=== PATIENT | female | born 1975 | race Caucasian/White ===

== ENCOUNTER 2017-04-01 23:32 | Emergency (ER) | payer OTHER ==
[~2017-04-01] VITALS: Ht 152.4 cm; Wt 60.0 kg
--- NOTE | ~2017-04-01 | CR94 ---
[facility] A Service of [facility] & [facility] RADIOLOGY TEXT RESULTS PATIENT: CHADD RUBY LOCATION: SED : [birth year] UNIT #: [id number] AGE: [address]: Elier Fairchild MD SEX: F ORDER DR: [id number] [place] [id number] E MR#: [id number] Acc #: [id number] NAME: CHADD RUBY : 1975 SEX: F STUDY DATE/TIME: 04/02/2017 0:07 UNIT: SED ROOM: STUDY DESCRIPTION: CR Elbow Min 3 Views Rt Attending Physician: Elier Fairchild M.D. Ordering Physician: Elier Fairchild M.D. Primary Care Physician: Primary Care Physician No MEDICAL IMAGING REPORT This report is preliminary unless electronic signature is present. EXAM Right elbow, 04/02/2017 HISTORY 41-year-old female with elbow pain after falling out of bed 1 week ago. TECHNIQUE Three-view right elbow series. FINDINGS Examination is negative. No fracture, dislocation or other osseous abnormality. IMPRESSION Negative right elbow series. Dictated by... Jayce Tracy M.D. THIS IS AN ELECTRONICALLY VERIFIED REPORT Jayce Tracy M.D. at 04/02/2017 6:07 AM Andrea TD: 04/02/2017 02:01 JOB #: [id number] MEDICAL IMAGING REPORT Page 1 of 1
[~2017-04-01 23:32] MED LIST: BENTYL20 MG PO; CLEOCIN PO; NO MEDICATIONS
== END 2017-04-02 01:04 | disposition home or self-care (01) ==
LOC: SED 23:32
DX: S50.01XA Contusion of right elbow, initial encounter (principal); F17.200 Nicotine dependence, unspecified, uncomplicated; W06.XXXA Fall from bed, initial encounter; Y92.9 Unspecified place or not applicable; Z88.2 Allergy status to sulfonamides; Z91.040 Latex allergy status
CPT/HCPCS: 73080; 99283

== ENCOUNTER → 2017-05-02 | Outpatient (CLI) | payer OTHER ==
--- NOTE | ~2017-05-02 | NM22 ---
[facility] A Service of [facility] & [facility] RADIOLOGY TEXT RESULTS PATIENT: CHADD RUBY LOCATION: [facility] : [birth year] UNIT #: [id number] AGE: [address]: Chalo Hyatt MD SEX: F ORDER DR: [id number] [place] [id number] [facility] [place], [place] [address] [id number] O MR#: [id number] Acc #: [id number] NAME: CHADD RUBY : 1975 SEX: F STUDY DATE/TIME: 05/02/2017 10:11 UNIT: CGUS ROOM: STUDY DESCRIPTION: NM Hepatobiliary W GB Pharm Attending Physician: Chalo Hyatt M.D. Referring Physician: Chalo Hyatt M.D. Ordering Physician: Chalo Hyatt M.D. Primary Care Physician: No Primary Care Physician MEDICAL IMAGING REPORT This report is preliminary unless electronic signature is present EXAM HIDA scan with Kinevac CCK, 05/02/2017. HISTORY Nausea, vomiting, and right upper quadrant abdominal pain for 2 years, worsening in the past 2 weeks. FINDINGS The patient received an intravenous injection of 5.22 mCi of technetium 99m tagged Choletec for hepatobiliary imaging. One hour following the injection of the radiopharmaceutical, the patient received an intravenous injection of 1.3 mcg of Kinevac. There is homogeneous distribution of the radiotracer throughout the liver. Gallbladder activity was seen by 15 minutes postinjection of the radiopharmaceutical. Following Kinevac injection, the gallbladder ejection fraction was 70.7% (normal is greater than 30%). IMPRESSION Normal HIDA scan with gallbladder ejection fraction of 70.7%. Dictated by... Ugo Gonzalez M.D. THIS IS AN ELECTRONICALLY VERIFIED REPORT Ugo Gonzalez M.D. at 05/04/2017 7:44 AM LESLIE/ivan TD: 05/02/2017 20:49 JOB #: [id number] MEDICAL IMAGING REPORT [facility] A Service of [facility] & [facility] RADIOLOGY TEXT RESULTS PATIENT: CHADD RUBY LOCATION: [facility] #: [id number] : [birth year] UNIT #: [id number] AGE: [address]: Chalo Hyatt MD SEX: F ORDER DR: Page 1 of 1 COPY
--- NOTE | ~2017-05-02 | US6 ---
[facility] A Service of [facility] & [facility] RADIOLOGY TEXT RESULTS PATIENT: CHADD RUBY LOCATION: [facility] : [birth year] UNIT #: [id number] AGE: [address]: Chalo Hyatt MD SEX: F ORDER DR: [id number] [facility] [address] [place], [place] [address] [id number] O MR#: [id number] Acc #: [id number] NAME: CHADD RUBY : 1975 SEX: F STUDY DATE/TIME: 05/02/2017 9:17 UNIT: US ROOM: STUDY DESCRIPTION: US Abdominal Limited Attending Physician: Chalo Hyatt M.D. Referring Physician: Chalo Hyatt M.D. Ordering Physician: Chalo Hyatt M.D. Primary Care Physician: No Primary Care Physician MEDICAL IMAGING REPORT This report is preliminary unless electronic signature is present EXAM Right upper quadrant ultrasound, 05/02/2017. HISTORY Right upper quadrant abdominal pain for 4 years with nausea after eating. Symptoms have worsened in the past 2 weeks. FINDINGS Ultrasound examination of the gallbladder is negative. There is no cholelithiasis, gallbladder wall thickening, or bile duct dilatation. The visualized liver is negative. IMPRESSION Negative gallbladder ultrasound examination. Dictated by... Ugo Gonzalez M.D. THIS IS AN ELECTRONICALLY VERIFIED REPORT Ugo Gonzalez M.D. at 05/04/2017 7:44 AM LESLIE/dominguez TD: 05/02/2017 20:58 JOB #: [id number] MEDICAL IMAGING REPORT Page 1 of 1 COPY
[2017-05-02 09:14] LABS: HEMATOCRIT 40.9 % (35.0-45.0); HEMOGLOBIN 13.7 gm/dL (12.0-16.0); MEAN CELL VOLUME 89.3 FL (83-96); MEAN CORPUSCULAR HGB CONC 33.6 g/dL (30-36); MEAN PLATELET VOLUME 7.7 FL (6.5-11.5); RED BLOOD COUNT 4.58 X10e (3.90-5.30); RED CELL DISTRIBUTION WIDTH 13.8 % (11.0-15.5); WHITE BLOOD COUNT 9.2 X10e3 (4.0-10.5)
[2017-05-02 09:38] LABS: ALBUMIN SERUM 4.4 g/dL (3.5-5.0); BILIRUBIN,TOTAL 0.2 mg/dL (0.2-2.0); CALCIUM SERUM 9.3 mg/dL (8.4-10.2); CREATININE SERUM 0.8 mg/dL (0.6-1.4); POTASSIUM 3.7 mmol/L (3.5-5.1); PROTEIN TOTAL SERUM 7.9 g/dL (6.0-8.3)
== END | disposition home or self-care (01) ==
LOC: CGUS 08:36 → CLAB 08:36 → CGUS 09:00
PROVIDERS: Internal Medicine
DX: R10.9 Unspecified abdominal pain (principal)
CPT/HCPCS: 36415; 76705; 78227; 80053; 82150; 83690; 85027; A9537; J2805